=== PATIENT | male | born 1955 | race Caucasian/White ===

== ENCOUNTER 2023-03-20 14:25 | Outpatient (CLI) | payer OTHER, SELFPAY ==
--- NOTE | ~2023-03-20 | CT_ITS ---
EXAMINATION: CT abdomen pelvis wo/w con DATE: 03/20/2023 15:23 INDICATION: Left lower quadrant abdominal pain TECHNIQUE: Computed tomography (CT) of the abdomen and pelvis was performed without and subsequently with 130 CC Omnipaque 350 intravenous contrast. Automated exposure control and iterative reconstructi on technique were employed. Exam dose: 876.73 mGy-cm total exam DLP. COMPARISON: None. FINDINGS: Mild bilateral gynecomastia. There is prominent discoid atelectasis or scarring in the left lower lobe and to a mild extent at the base of the lingula. Pleural calcifications are noted, primarily at the lower left anterolateral ky st, with small lower calcification in the posterior right lower chest The lung bases are clear of infiltrate or consolidation. Extensive coronary artery calcifications heart size is within normal range. There is trace pericardia l fluid. No pleural effusion. No hepatic, splenic, pancreatic space-occupying mass lesion. The adrenal glands are unremarkable; can not exclude small left adrenal adenoma. 7.5 mm left renal cyst. No renal mass lesion or urinary tract calculus or hydroureteronephrosis is ev ident. There is extensive atherosclerotic calcification of the abdominal aorta without aneurysm, with promin ent calcifications as well at the celiac and superior mesenteric, inferior mesenteric and renal arter ies, in addition to the common, internal and external iliac and femoral arteries. No intraperitoneal or retroperitoneal or pelvic mass lesion or adenopathy or ascites is evident. Normal appendix. No bowel obstruction, bowel wall thickening, pneumatosis or intraperitoneal free air . Plates and screws of the posterior left fifth through ninth ribs. Bilateral old healed rib fractures. Status post posterior and interbody surgical fusion at L4-S1 Fluid-filled reservoir of penile prosthesis is noted in the anterolateral base of the pelvis IMPRESSION: Extensive coronary, aortic, mesenteric, renal and lower extremity atherosclerotic calcif ications; no abdominal aortic aneurysm 7.5 mm left renal cyst Status post posterior and interbody spinal fusion at L4-S1 Reviewed, dictated and finalized at [facility]. Reviewed, dictated and finalized at [facility]. IMPRESSION: Extensive coronary, aortic, mesenteric, renal and lower extremity atherosclerotic calcifications; no abdominal aortic aneurysm 7.5 mm left renal cyst Status post posterior and interbody spinal fusion at L4-S1
[2023-03-20 15:08] LABS: Estimated Glomerular Filt Rate > 60
== END 2023-03-20 14:26 | disposition home or self-care (01) ==
PROVIDERS: PCP Internal Medicine; Visit Provider Nurse Practitioner
DX: R10.32 Left lower quadrant pain (principal); N62 Hypertrophy of breast; Z98.1 Arthrodesis status; N28.1 Cyst of kidney, acquired; I25.10 Atherosclerotic heart disease of native coronary artery without angina pectoris; I73.9 Peripheral vascular disease, unspecified
CPT/HCPCS: 74178; Q9967